=== PATIENT | male | born 1965 | race Caucasian/White ===

== ENCOUNTER 2021-09-11 08:30 | Emergency (ER) | payer OTHER ==
[~2021-09-11] VITALS: Ht 185.4 cm; Wt 99.3 kg
[2021-09-11 09:16] LABS: ABSOLUTE NEUTROPHILS 4.1 thou/uL (1.4-8.2); BASOPHILS 0.6 % (0.0-2.0); EOSINOPHILS 2.6 % (0.0-3.0); HEMATOCRIT 48.1 % (42.0-52.0); HEMOGLOBIN 15.9 gm/dL (14.0-18.0); LYMPHOCYTES 24.9 % (24.0-44.0); MCH 29.6 pg (26.0-34.0); MCHC 33.2 g/dL (28.0-37.0); MCV 89.2 fL (80.0-100.0); MONOCYTES 9.4 % (1.0-8.0); PLATELET COUNT 248 thou/uL (150-400); POLYS 62.5 % (36.0-66.0); RBC 5.39 mil/uL (4.50-6.00); RDW 13.9 % (10.5-14.5); WBC 6.5 thou/uL (4.0-11.0)
[2021-09-11 09:20] LABS: CALCIUM 8.9 mg/dL (8.5-10.1); CREATININE 1.2 mg/dL (0.7-1.3); POTASSIUM 4.5 mmol/L (3.5-5.1)
[2021-09-11 10:27] VITALS: BP 127/58
--- NOTE | 2021-09-12 07:38 | EKG ---
[address] [employer] [place] [address] ELECTROCARDIOGRAM REPORT Name: ERIBERTO JUAREZ [id number] Admission: 09/11/21 Attend Phys: Discharge: 09/11/21 Date of : 63 Report #: [id number] [facility] ED Test Date: 2021-09-11 Test Time: 08:37:20 Pat Name: ERIBERTO JUAREZ Department: Room: Gender: Ply Splicer: : 1965 Requested By: Sd Shepard Order Number: [id number] MD: Julio Davidson Measurements Intervals [place] Rate: 66 P: 54 OR: 140 QRS: 28 QRSD: 82 T: 54 QT: 380 QTc: 399 Interpretive Statements Sinus rhythm Compared to ECG 12/10/2004 15:48:19 No significant changes Electronically Signed On 09-12-2021 7:38:12 [employer]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
== END 2021-09-11 10:30 | disposition home or self-care (01) ==
LOC: ER 08:30
PROVIDERS: Emergency Medicine
DX: R55 Syncope and collapse (principal); Z88.0 Allergy status to penicillin